=== PATIENT | female | born 1975 ===

== ENCOUNTER 2023-10-18 21:03 | Outpatient (REF) | payer BC, SELFPAY ==
[2023-10-20 12:05] LABS: Lyme Ab w Rflx to Lyme Confirm Negative (Negative)
== END 2023-10-18 21:04 | disposition home or self-care (01) ==
LOC: LBN 21:03
PROVIDERS: Visit Provider Nurse Practitioner Family
DX: T14.8XXA Other injury of unspecified body region, initial encounter (principal); W57.XXXA Bitten or stung by nonvenomous insect and other nonvenomous arthropods, initial encounter; Z01.84 Encounter for antibody response examination
CPT/HCPCS: 86618